=== PATIENT | female | born 1965 | race Caucasian/White ===

== ENCOUNTER → 2016-08-28 | Outpatient (CLI) | payer BC, OTHER ==
[~2016-08-28] MED LIST: ACETAMINOPHEN PO; ACETAMINOPHEN650 M3 PO; ALBUTEROL17 GM INH; ALBUTEROL20 ml; ALLERGY RELIEF10 M6 PO; ALLERGY RELIEF10 MG PO; AMOXICILLIN PO; ASMACORT INH; ASPIRIN EC81 M1; AZITHROMYCIN250 MG PO; CALCIUM 500 + D1 TAB PO; CALCIUM WITH VIT D PO; CAMBIA50 MG; CIPRO PO; DICLOFENAC SODI50 MG PO; FLONASE 0.05% N16 G1; FLOVENT DI50 MCG/DIS INH; GABAPENTIN300 M2 PO; GLUCOPHAGE500 M1 PO; HYDROCODON-ACE1 EAC9 PO; IBUPROFEN PO; IBUPROFEN800 MG PO; KCL PO; LASIX PO; LEVOXYL125 MC1 PO; LISINOPRIL PO; LISINOPRIL-HCTZ1 T14 PO; LISINOPRIL-HCTZ1 T15 PO; METFORMIN HCL500 M1 PO; METFORMIN HCL500 M4; MIRAPEX PO; MIRAPEX0.75 MG PO; MUCINEX DM ER1 EACH PO; MULTI VITAMIN1 EACH PO; NABUMETONE PO; OMEPRAZOLE20 M1 PO; OMEPRAZOLE20 M2 PO; PHENERGAN PO; PHENERGAN25 MG PO; PRAMIPEXOLE DI0.5 MG PO; PREDNISONE PO; PRILOSEC PO; PRINIVIL40 MG PO; PROAIR HFA8.5 GM; PROAIR HFA8.5 GM IH; PYRIDIUM PO; SYMBICORT 160/4.6 GM IH; SYMBICORT80 INH; SYNTHROID0.15 MG PO; TOPAMAX25 MG; VOLTAREN75 MG PO
--- NOTE | ~2016-08-28 | MR17 ---
[facility] A Service of [facility] RADIOLOGY TEXT RESULTS PATIENT: JUSTIN MARTINEZ LOCATION: [facility] : 63 UNIT #: [id number] AGE: [address]: TYRA CARDENAS SEX: F ORDER DR: [id number] [address] [address] [id number] O MR#: [id number] Acc #: [id number] NAME: JUSTIN MARTINEZ : 1965 SEX: F STUDY DATE/TIME: 08/28/2016 8:51 UNIT: [facility] ROOM: STUDY DESCRIPTION: MR Brain WWo Contrast Attending Physician: Tyra Cardenas M.D. Referring Physician: Staff Doctor Not On Ordering Physician: Tyra Cardenas M.D. Primary Care Physician: Lisa Woods A.P.R.N. MRI CENTER REPORT This report is preliminary unless electronic signature is present. EXAM MRI of the brain with and without contrast. DATE OF EXAM 08/28/[address] head without contrast, dated 06/29/2016. 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 It is more worse and frequent now in the last 2 months. FINDINGS Multisequence, multiplanar imaging of the brain was obtained with and without contrast. 20 mL of MultiHance was administered intravenously. No acute stroke, enhancing mass, mass effect, midline shift or hydrocephalus. Nasal septum is deviated to the left. Imaged orbits with the ocular structures and paranasal sinuses are unremarkable. Mild right mastoid tip mucosal thickening is seen. Postcontrast sequences do not demonstrate any abnormal enhancement. There is partially empty sella seen. IMPRESSION 1. Punctate tiny few small hyperintense T2-signal lesions are noted in the brain involving the white matter, likely related to migraine or minimal chronic microvascular ischemic change, if any. Nonspecific. 2. No acute stroke, enhancing mass, hydrocephalus, hemorrhage or midline shift. Dictated by... Gissel Presley M.D. [facility] A Service [facility] RADIOLOGY TEXT RESULTS PATIENT: JUSTIN MARTINEZ [id number] 63 UNIT #: [id number] AGE: [address]: TYRA CARDENAS SEX: F ORDER DR: THIS IS AN ELECTRONICALLY VERIFIED REPORT Gissel Presley M.D. at 08/31/2016 5:16 PM CPR/jdeion TD: 08/28/2016 21:06 JOB #: [id number] MRI CENTER REPORT
== END | disposition home or self-care (01) ==
LOC: SMRI 08:10
DX: R51 Headache (principal); G93.9 Disorder of brain, unspecified
CPT/HCPCS: 70553; A9581

== ENCOUNTER 2017-01-25 21:02 | Emergency (ER) | payer OTHER ==
[~2017-01-25] VITALS: Ht 152.4 cm; Wt 95.2 kg
--- NOTE | ~2017-01-25 | CR94 ---
[facility]. [facility] A Service of [facility] RADIOLOGY TEXT RESULTS PATIENT: JUSTIN MARTINEZ LOCATION: SED : 63 UNIT #: [id number] AGE: [address]: MYKEL RM SEX: F ORDER DR: [id number] [place] [id number] MR#: [id number] Acc #: [id number] NAME: JUSTIN MARTINEZ. : 1965 SEX: F STUDY DATE/TIME: 01/25/2017 21:49 UNIT: SED ROOM: STUDY DESCRIPTION: CR Elbow Min 3 Views Rt Attending Physician: Mykel Rm Aprn Ordering Physician: Mykel Rm Aprn Primary Care Physician: Lisa Woods A.P.R.N. MEDICAL IMAGING REPORT This report is preliminary unless electronic signature is present. EXAM Right elbow, 01/25/17 HISTORY A 51-year-old female with pain in the right elbow for a week. No known reason. No injury. TECHNIQUE Three views of the right elbow compared with 08/09/13 FINDINGS The examination is negative. No acute fracture. No joint effusion or retained opaque foreign body. IMPRESSION Negative. Dictated by... Cortes Carrera M.D. THIS IS AN ELECTRONICALLY VERIFIED REPORT Cortes Carrera M.D. at 01/26/2017 2:22 PM Jama TD: 01/26/2017 10:59 JOB #: [id number] MEDICAL IMAGING REPORT Page 1 of 1
[~2017-01-25 21:02] MED LIST changes: -ALBUTEROL20 ml; -CAMBIA50 MG; -METFORMIN HCL500 M4; -PROAIR HFA8.5 GM; -TOPAMAX25 MG
[2017-01-25] MEDS ORDERED: TOPAMAX25 MG (21:17)
[2017-01-25] MEDS ORDERED: METFORMIN HCL500 M4 (21:18)
[2017-01-25] MEDS ORDERED: CAMBIA50 MG (21:18)
[2017-01-25] MEDS ORDERED: PROAIR HFA8.5 GM (21:18)
[2017-01-25] MEDS ORDERED: ALBUTEROL20 ml (21:18)
[2017-01-25] MEDS ORDERED: FLONASE 0.05% N16 G1 (21:19)
== END 2017-01-25 22:20 | disposition home or self-care (01) ==
LOC: SED 21:02
DX: M77.9 Enthesopathy, unspecified (principal); E11.40 Type 2 diabetes mellitus with diabetic neuropathy, unspecified; I10 Essential (primary) hypertension; M19.90 Unspecified osteoarthritis, unspecified site; Z98.51 Tubal ligation status; Z98.890 Other specified postprocedural states; Z79.84 Long term (current) use of oral hypoglycemic drugs
CPT/HCPCS: 29260; 73080; 99283

== ENCOUNTER → 2017-02-18 | Outpatient (CLI) | payer OTHER ==
[~2017-02-18] MED LIST changes: +ALBUTEROL20 ml; +CAMBIA50 MG; +METFORMIN HCL500 M4; +PROAIR HFA8.5 GM; +TOPAMAX25 MG
--- NOTE | ~2017-02-18 | US77 ---
[facility] A Service of [facility] RADIOLOGY TEXT RESULTS PATIENT: JUSTIN MARTINEZ LOCATION: [facility] : 63 UNIT #: [id number] AGE: [address]: Paulo Botello MD SEX: F ORDER DR: [id number] [address] [address] [id number] O MR#: [id number] Acc #: [id number] NAME: JUSTIN MARTINEZ : 1965 SEX: F STUDY DATE/TIME: 02/18/2017 12:57 UNIT: [facility] ROOM: STUDY DESCRIPTION: US Kidney Bilateral Complete Attending Physician: Paulo Botello M.D. Referring Physician: Paulo Botello M.D. Ordering Physician: Paulo Botello M.D. Primary Care Physician: Lisa Woods A.P.R.N. MEDICAL IMAGING REPORT This report is preliminary unless electronic signature is present. EXAM Bilateral renal ultrasound DATE 02/18/2017 HISTORY Chronic kidney disease stage III. Diagnosed 1 month ago. Creatinine 1.4. BUN 27. GFR 42. COMPARISON CT abdomen and pelvis without contrast 02/02/2009. FINDINGS The right kidney measures 9.8 x 5.2 x 4.3 cm. The left kidney measures 9.5 x 4.5 x 4.4 cm. Both kidneys maintain normal cortical thickness and cortical echotexture. No cystic or solid renal mass, shadowing stone or hydronephrosis is seen on either side. Urinary bladder is normal. IMPRESSION 1. Normal bilateral renal ultrasound. Dictated by... Stephenie White M.D. THIS IS AN ELECTRONICALLY VERIFIED REPORT Stephenie White M.D. at 02/19/2017 8:54 AM [facility]/darrick TD: 02/18/2017 19:50 JOB #: [id number] [facility] A Service of [facility] RADIOLOGY TEXT RESULTS PATIENT: JUSTIN MARTINEZ LOCATION: [facility] : 63 UNIT #: [id number] AGE: [address]: Paulo Botello MD SEX: F ORDER DR: MEDICAL IMAGING REPORT Page 1 of 1
[2017-02-18 12:53] LABS: URINE APPEARANCE CLEAR; URINE BILIRUBIN NEG (NEG); URINE BLOOD NEG (NEG); URINE COLOR YELLOW; URINE GLUCOSE NEG (NORM); URINE KETONE NEG (NEG); URINE LEUKOCYTE ESTERASE 1+ (NEG); URINE NITRATE NEG (NEG); URINE PH 6.5 (5-8); URINE PROTEIN NEG (NEG)
[2017-02-18 12:56] LABS: HEMATOCRIT 33.8 % (35.0-45.0); HEMOGLOBIN 11.3 gm/dL (12.0-16.0); MEAN CELL VOLUME 85.1 FL (83-96); MEAN CORPUSCULAR HEMOGLOBIN 28.4 PG (28-34); MEAN CORPUSCULAR HGB CONC 33.4 g/dL (30-36); MEAN PLATELET VOLUME 8.1 FL (6.5-11.5); RED BLOOD COUNT 3.98 X10e (3.90-5.30); RED CELL DISTRIBUTION WIDTH 15.3 % (11.0-15.5); WHITE BLOOD COUNT 5.1 X10e3 (4.0-10.5)
[2017-02-18 12:58] LABS: MICRO INDICATED? YES; URINE SOURCE CLEAN CATCH
[2017-02-18 12:59] LABS: URINE BACTERIA 1+ (NEG); URINE SQUAMOUS EPITHELIAL CELL MODERATE /[HPF]
[2017-02-18 13:00] LABS: URINE YEAST PRESENT
[2017-02-18 13:13] LABS: BUN/CREATININE RATIO 16.36; CALCIUM SERUM 8.5 mg/dL (8.4-10.2); CREATININE SERUM 1.1 mg/dL (0.6-1.4); GLOM FILT RATE Estimated 57.7 mL/min (>60); POTASSIUM 3.4 mmol/L (3.5-5.1)
[2017-02-18 15:15] LABS: CREATININE,RANDOM URINE 210 mg/dL; TOTAL PROTEIN,RANDOM URINE 16 mg/dl (<10)
== END | disposition home or self-care (01) ==
LOC: SGUS 12:29
PROVIDERS: Internal Medicine Nephrology
DX: N18.3 Chronic kidney disease, stage 3 (moderate) (principal)
CPT/HCPCS: 36415; 76775; 80048; 81003; 82570; 84156; 85027